=== PATIENT | female | born 1945 | race Hispanic/Latino ===

== ENCOUNTER 2023-02-06 06:40 | Day surgery (SDC) | payer OTHER ==
[2023-02-02 13:25] LABS: BASOPHILS % (AUTO) 0.4 % (0.0-5.0); EOSINOPHILS % (AUTO) 8.8 % (0.0-8.0); HEMATOCRIT 37.7 % (36-48); LYMPHOCYTES % (AUTO) 33.6 % (21.0-51.0); MEAN CORPUSCULAR VOLUME 86.9 fL (79-99); MONOCYTES % (AUTO) 7.8 % (3.0-13.0); NEUTROPHILS % (AUTO) 49.3 % (40.0-77.0); PLATELET COUNT (AUTO) 241 K/uL (130-400); RED BLOOD CELL COUNT(AUTO) 4.34 MIL/uL (4.00-5.50); RED CELL DISTRIBUTION WIDTH 14.3 % (11.0-15.5); WHITE BLOOD COUNT (AUTO) 7.2 K/uL (4.8-10.8)
[2023-02-02 13:40] LABS: POTASSIUM 4.8 mmol/L (3.5-5.1)
[2023-02-02 13:46] LABS: INR 0.94 (0.85-1.15)
[2023-02-02 13:47] LABS: PARTIAL THROMBOPLASTIN TIME 28.6 SEC (26.3-35.5)
[2023-02-05 16:28] VITALS: BP 147/73
[2023-02-06] VITALS (9 sets, daily range): BP systolic 100–152; BP diastolic 47–73
[~2023-02-06] VITALS: Ht 162.6 cm; Wt 69.4 kg
[~2023-02-06 06:40] MED LIST: ATOR40TA69 PO; CA C1TAB95 PO; EMPA1TAB9 PO; METO-408 PO; TURKEY TAIL PO
[2023-02-06] MEDS ORDERED: 0.9%NACL 1000ML 1,000 ML IV ONE (07:37)
[2023-02-06] MEDS ORDERED: BUPIVACAINE/PF 0.25% 10ML VIAL IJ ONE ×2 (10:15→10:24)
[2023-02-06] MEDS ORDERED: LIDOCAINE HCL 1% MDV 50ML VIAL ONE (10:15)
[2023-02-06] MEDS ORDERED: MEPERIDINE-PF 50 MG/ML SYG ONE (10:16)
[2023-02-06] MEDS ORDERED: CEFAZOLIN SODIUM 1 GM VIAL ONE (10:16)
[2023-02-06] MEDS ORDERED: MIDAZOLAM HCL 1 MG/ML 2ML VIAL ONE (10:16)
[2023-02-06] MEDS ORDERED: ACETAMINOPHEN WITH CODEINE 1 TAB TAB PO PRN (12:00)
[2023-02-06] MEDS ORDERED: ACETAMINOPHEN 500 MG TABLET PO PRN (12:00)
== END 2023-02-06 15:13 | disposition home or self-care (01) ==
LOC: DAH 06:40
PROVIDERS: ATTEND Internal Medicine Cardiovascular Disease
DX: I44.2 Atrioventricular block, complete (principal); I10 Essential (primary) hypertension; E78.5 Hyperlipidemia, unspecified; E11.9 Type 2 diabetes mellitus without complications; Z98.890 Other specified postprocedural states; Z90.49 Acquired absence of other specified parts of digestive tract; Z90.710 Acquired absence of both cervix and uterus; Z82.49 Family history of ischemic heart disease and other diseases of the circulatory system; Z90.12 Acquired absence of left breast and nipple; Z79.01 Long term (current) use of anticoagulants; Z79.899 Other long term (current) drug therapy
CPT/HCPCS: 80048; 85025; 85610; 85730; 36415; 93005; 33208; 82948 ×2; 71045; C1785; C1898 ×2; A4663; J0690; J7030; J2250; J3490 ×3; J2175; A4215; A6251 ×2; A4335; A4222; A4221; A6258 ×2; A4223 ×2; A4554; 99156; 99157